=== PATIENT | female | born 1975 | race Two or more races ===

== ENCOUNTER 2022-04-01 16:47 | Inpatient (IN) | payer OTHER ==
[2022-04-01 17:48] VITALS: BMI 21.2
[2022-04-01] MEDS ORDERED: MAGNESIUM HYDROX 2400MG/30ML ORAL SUSPENSION 30 ML CUP PO PRN (18:01)
[2022-04-01] MEDS ORDERED: ONDANSETRON *ODT* 4 MG TABLET SL PRN (18:01)
[2022-04-01] MEDS ORDERED: MAGNESIUM CITRATE 300 ML BOTTLE PO PRN (18:01)
[2022-04-01] MEDS ORDERED: ACETAMINOPHEN 325 MG TABLET (FP) PO PRN ×2 (18:01)
[2022-04-01] MEDS ORDERED: guaiFENesin 200 MG/10 ML 10 ML UNIT-DOSE CUPS PO PRN (18:01)
[2022-04-01] MEDS ORDERED: MELATONIN 5 MG TABLETS PO PRN (18:01)
[2022-04-01] MEDS ORDERED: LOPERAMIDE HCL 2 MG CAPSULE PO PRN (18:01)
[2022-04-01] MEDS ORDERED: P-EPHED 60MG/TRIPROLIDI 2.5MG TABLET PO PRN (18:01)
[2022-04-01] MEDS ORDERED: hydrOXYzine PAMOATE 25 MG CAPSULE (FP) PO PRN (18:01)
[2022-04-01] MEDS ORDERED: DICYCLOMINE HCL 10 MG CAPSULE PO PRN (18:01)
[2022-04-01] MEDS ORDERED: NICOTINE POLACRILEX 2 MG GUM BUC PRN (18:01)
[2022-04-01] MEDS ORDERED: BISMUTH SUBSALICYLATE 524 MG/30 ML PO PRN (18:01)
[2022-04-01] MEDS ORDERED: IBUPROFEN 400 MG TABLET (FP) PO PRN (18:01)
[2022-04-01] MEDS ORDERED: BENZOCAINE/MENTHOL (CHLORASEPTIC ) LOZENGE MM PRN (18:01)
[2022-04-01] MEDS ORDERED: MAG HYDROX/AL HYDROX/SIMETH 30 ML UNIT-DOSE CUP PO PRN (18:01)
[2022-04-01] MEDS: THIAMINE HCL 100 MG TABLET (FP) PO SCH (22:59)
[2022-04-02] MEDS: METHOCARBAMOL 500 MG TABLET PO PRN ×3 (00:47→18:07)
[2022-04-02] MEDS: IBUPROFEN 600 MG TABLET (FP) PO PRN ×2 (00:47→06:56)
[2022-04-02] MEDS ORDERED: METOPROLOL TARTRATE 25 MG TABLET (FP) PO ONE (00:59)
[2022-04-02] MEDS ORDERED: diazePAM 5 MG TABLET PO ONE (01:01)
[2022-04-02] MEDS ORDERED: diazePAM 5 MG TABLET PO PRN (01:01)
[2022-04-02] MEDS: diazePAM 5 MG TABLET PO SCH ×4 (06:26→22:29)
[2022-04-02] MEDS: PRENATAL VITAMINS W/ FOLIC ACID TABLET (FP) PO SCH (10:16)
[2022-04-02] MEDS ORDERED: METHADONE PO ONE (10:45)
[2022-04-02] MEDS ORDERED: methaDONE HCL 10 MG TABLET PO ONE (11:12)
[2022-04-02 12:47] LABS: HEMOGLOBIN 13.6 GM/dL (10.7-15.3); MCH 29.6 pg (25.7-33.7); MCHC 33.1 g/dl (32.0-36.0); MEAN CELL VOLUME 89.2 fl (80-96); MEAN PLT VOLUME 8.3 fl (7.5-11.1); PLATELET COUNT 350 10^3/uL (134-434); RDW 12.8 % (11.6-15.6); WHITE BLOOD COUNT 10.9 K/mm3 (4.0-10.0)
[2022-04-02 12:50] LABS: ALBUMIN 2.7 g/dl (3.4-5.0); BLOOD UREA NITROGEN 11.7 mg/dL (7-18)
[2022-04-02 12:51] LABS: CALCIUM 9.1 mg/dL (8.5-10.1)
[2022-04-02 12:54] LABS: CREATININE 0.7 mg/dL (0.55-1.3)
[2022-04-02 12:55] LABS: BILIRUBIN,TOTAL 0.3 mg/dL (0.2-1); TOT PROT 6.5 g/dl (6.4-8.2)
[2022-04-02] MEDS: lamoTRIgine 25 MG TABLET PO SCH (12:59)
[2022-04-02] MEDS ORDERED: SUVOREXANT 10 MG TABLET PO PRN (22:00)
[2022-04-02] MEDS: THIAMINE HCL 100 MG TABLET (FP) PO SCH (22:29)
[2022-04-03] MEDS: diazePAM 5 MG TABLET PO SCH ×2 (05:26→13:59)
[2022-04-03] MEDS ORDERED: methaDONE 40 MG, methaDONE 30 MG PO ONE (06:00)
[2022-04-03] MEDS ORDERED: methaDONE HCL 10 MG TABLET PO ONE (06:00)
[2022-04-03] MEDS: PRENATAL VITAMINS W/ FOLIC ACID TABLET (FP) PO SCH (10:35)
[2022-04-03] MEDS: lamoTRIgine 25 MG TABLET PO SCH (10:35)
[2022-04-03] MEDS ORDERED: POTASSIUM CHLORIDE ORAL LIQUID 20 MEQ/15 ML PO ONE ×2 (12:00→16:00)
[2022-04-03] MEDS: METOPROLOL TARTRATE 25 MG TABLET (FP) PO SCH (14:52)
[2022-04-03] MEDS ORDERED: diazePAM 5 MG TABLET PO SCH (22:00)
[2022-04-03] MEDS: THIAMINE HCL 100 MG TABLET (FP) PO SCH (22:23)
[2022-04-03] MEDS: IBUPROFEN 600 MG TABLET (FP) PO PRN (22:26)
[2022-04-04] MEDS ORDERED: diazePAM 5 MG TABLET PO SCH (06:00)
[2022-04-04] MEDS ORDERED: methaDONE HCL 10 MG TABLET PO ONE (06:00)
[2022-04-04] MEDS ORDERED: methaDONE 40 MG, methaDONE 20 MG PO ONE (06:00)
[2022-04-04] MEDS: diazePAM 5 MG TABLET PO SCH ×2 (06:05→19:57)
[2022-04-04] MEDS: METOPROLOL TARTRATE 25 MG TABLET (FP) PO SCH (10:44)
[2022-04-04] MEDS: lamoTRIgine 25 MG TABLET PO SCH (10:44)
[2022-04-04] MEDS: PRENATAL VITAMINS W/ FOLIC ACID TABLET (FP) PO SCH (10:44)
[2022-04-04] MEDS ORDERED: methaDONE 40 MG, methaDONE 30 MG PO ONE (11:15)
[2022-04-04] MEDS: LACTULOSE 20 GM/30 ML UDC (FOR ORAL USE ONLY) PO SCH ×2 (15:12→22:18)
[2022-04-04] MEDS: IBUPROFEN 600 MG TABLET (FP) PO PRN (17:53)
[2022-04-04 18:03] VITALS: RESP 16
[2022-04-04] MEDS: SULFAMETHOXAZOLE/TRIMETHOPRIM 800MG/160MG D.S. TABLET PO SCH (22:17)
[2022-04-04] MEDS: THIAMINE HCL 100 MG TABLET (FP) PO SCH (22:17)
[2022-04-05] MEDS ORDERED: methaDONE 40 MG, methaDONE 10 MG PO SCH (06:00)
[2022-04-05] MEDS ORDERED: methaDONE 40 MG, methaDONE 30 MG PO SCH (06:00)
[2022-04-05] MEDS ORDERED: methaDONE HCL 40 MG DISPERSABLE TABLET PO SCH ×2 (06:00)
[2022-04-05] MEDS ORDERED: diazePAM 5 MG TABLET PO ONE ×2 (06:00)
[2022-04-05] MEDS ORDERED: methaDONE HCL 10 MG TABLET PO SCH (06:00)
[2022-04-05] MEDS: LACTULOSE 20 GM/30 ML UDC (FOR ORAL USE ONLY) PO SCH (06:09)
[2022-04-05 10:01] VITALS: BP 135/79; PULSE 80; TEMP 97.8
[2022-04-05] MEDS: PRENATAL VITAMINS W/ FOLIC ACID TABLET (FP) PO SCH (10:17)
[2022-04-05] MEDS: SULFAMETHOXAZOLE/TRIMETHOPRIM 800MG/160MG D.S. TABLET PO SCH (10:17)
[2022-04-05] MEDS: METOPROLOL TARTRATE 25 MG TABLET (FP) PO SCH (10:17)
[2022-04-05] MEDS: lamoTRIgine 25 MG TABLET PO SCH (10:18)
== END 2022-04-05 11:35 | disposition home or self-care (01) | DRG 773 ==
LOC: YASAS 16:47 → Y6N 20:04
PROVIDERS: ADMIT Allergy & Immunology; ATTEND Surgery
PROC: HZ2ZZZZ Detoxification Services for Substance Abuse Treatment (ICD-10-PCS; principal; 2022-04-01)
DX: F10.230 Alcohol dependence with withdrawal, uncomplicated (principal); F11.20 Opioid dependence, uncomplicated; F14.20 Cocaine dependence, uncomplicated; F12.20 Cannabis dependence, uncomplicated; F17.210 Nicotine dependence, cigarettes, uncomplicated; F19.282 Other psychoactive substance dependence with psychoactive substance-induced sleep disorder; F19.280 Other psychoactive substance dependence with psychoactive substance-induced anxiety disorder; F18.24 Inhalant dependence with inhalant-induced mood disorder; F32.A Depression, unspecified; F43.10 Post-traumatic stress disorder, unspecified; F41.9 Anxiety disorder, unspecified; I10 Essential (primary) hypertension; E11.9 Type 2 diabetes mellitus without complications; E87.6 Hypokalemia; R79.89 Other specified abnormal findings of blood chemistry; Z62.810 Personal history of physical and sexual abuse in childhood
CPT/HCPCS: 36415; 80053; 81025; 82140; 82962; 84132; 85027; 86780; 87811; C9803-CS; U0003; U0005

== ENCOUNTER 2024-07-30 13:15 | Inpatient (IN) | payer OTHER ==
[2024-07-30 14:15] VITALS: BMI 23.7
[2024-07-30] MEDS ORDERED: POLYETHYLENE GLYCOL (HEALTHYLAX) 3350 17 GM PACKET PO PRN (14:23)
[2024-07-30] MEDS ORDERED: DICYCLOMINE HCL 10 MG CAPSULE PO PRN (14:23)
[2024-07-30] MEDS ORDERED: LOPERAMIDE HCL 2 MG CAPSULE PO PRN (14:23)
[2024-07-30] MEDS ORDERED: IBUPROFEN 400 MG TABLET (FP) PO PRN (14:23)
[2024-07-30] MEDS ORDERED: MAGNESIUM HYDROX 2400MG/30ML ORAL SUSPENSION 30 ML CUP PO PRN (14:23)
[2024-07-30] MEDS ORDERED: ONDANSETRON *ODT* 4 MG TABLET SL PRN (14:23)
[2024-07-30] MEDS ORDERED: NALOXONE (NARCAN) HCL 4 MG/0.1 ML SPRAY NS PRN (14:23)
[2024-07-30] MEDS ORDERED: methaDONE HCL 10 MG TABLET (FOR DETOX USE ONLY) PO PRN (14:23)
[2024-07-30] MEDS ORDERED: BISMUTH SUBSALICYLATE 524 MG/30 ML PO PRN (14:23)
[2024-07-30] MEDS ORDERED: NICOTINE POLACRILEX 2 MG GUM BUC PRN (14:23)
[2024-07-30] MEDS ORDERED: methaDONE HCL 10 MG TABLET (FOR DETOX USE ONLY) ONE (14:59)
[2024-07-30] MEDS ORDERED: cloNIDine HCL 0.1 MG TABLET ONE (14:59)
[2024-07-30] MEDS: cloNIDine HCL 0.1 MG TABLET PO PRN (15:01)
[2024-07-30] MEDS: methaDONE HCL 10 MG TABLET (FOR DETOX USE ONLY) PO ONE (15:01)
[2024-07-30] MEDS: THIAMINE 100 MG TABLET PO SCH (21:44)
[2024-07-30] MEDS: MELATONIN 5 MG TABLETS PO SCH (21:44)
[2024-07-30] MEDS: METOPROLOL TARTRATE 25 MG TABLET (FP) PO SCH (21:45)
[2024-07-31] MEDS ORDERED: METOPROLOL TARTRATE 25 MG TABLET (FP) PO SCH (10:00)
[2024-07-31] MEDS: NICOTINE 14 MG/24 HOURS TOPICAL PATCH TD SCH (10:07)
[2024-07-31] MEDS: PRENATAL VITAMINS W/ FOLIC ACID TABLET (FP) PO SCH (10:07)
[2024-07-31 11:12] LABS: POTASSIUM 3.8 mmol/L (3.5-5.1)
[2024-07-31 11:13] LABS: HEMATOCRIT 41.5 % (32.4-45.2); HEMOGLOBIN 13.7 GM/dL (10.7-15.3); MCH 29.1 pg (25.7-33.7); MEAN PLT VOLUME 7.7 fl (7.5-11.1); PLATELET COUNT 299 10^3/uL (134-434); RBC 4.72 M/mm3 (3.60-5.2); RDW 13.9 % (11.6-15.6); WHITE BLOOD COUNT 8.6 K/mm3 (4.0-10.0)
[2024-07-31 11:19] LABS: BLOOD UREA NITROGEN 18.7 mg/dL (7-18); CALCIUM 9.1 mg/dL (8.5-10.1)
[2024-07-31 11:22] LABS: CREATININE 0.9 mg/dL (0.55-1.3)
[2024-07-31 11:23] LABS: BILIRUBIN,TOTAL 0.2 mg/dL (0.2-1); TOT PROT 6.7 g/dl (6.4-8.2)
[2024-07-31] MEDS: guaiFENesin 600 MG TABLET.ER (FP) PO PRN (17:59)
[2024-07-31] MEDS: BENZOCAINE/MENTHOL (CHLORASEPTIC ) LOZENGE MM PRN (18:00)
[2024-08-01] MEDS: BENZONATATE 200 MG CAPSULE PO PRN (01:57)
[2024-08-01] MEDS: methaDONE HCL 10 MG TABLET (FOR DETOX USE ONLY) PO ONE (09:33)
[2024-08-01] MEDS: MAG HYDROX/AL HYDROX/SIMETH 30 ML UNIT-DOSE CUP PO PRN (14:41)
[2024-08-01] MEDS: PENICILLIN G BENZATHINE 2,400,000 UNIT/4 ML PFS IM ONE (14:47)
[2024-08-01] MEDS: INSULIN ASPART SLIDING SCALE (NOVOLOG) 1 VIAL SQ SCH (16:51)
[2024-08-01] MEDS: hydrOXYzine PAMOATE 25 MG CAPSULE (FP) PO PRN (21:44)
[2024-08-02] MEDS: IBUPROFEN 600 MG TABLET (FP) PO PRN (17:27)
[2024-08-02] MEDS: METHOCARBAMOL 500 MG TABLET PO PRN (17:28)
[2024-08-02] MEDS: ACETAMINOPHEN 325 MG TABLET (FP) PO PRN (22:19)
[2024-08-02] MEDS: BENZOCAINE 20 % GEL TUBE MM PRN (22:37)
[2024-08-03] MEDS: methaDONE HCL 10 MG TABLET (FOR DETOX USE ONLY) PO ONE (09:33)
[2024-08-03 17:09] VITALS: RESP 18
[2024-08-04] MEDS: NALOXONE (NYS OPIOID OVERDOSE PROGRAM) 4 MG/0.1 ML SPRAY NS SCH (14:06)
[2024-08-04 17:17] VITALS: BP 159/95; PULSE 76; TEMP 97.6
== END 2024-08-04 18:02 | disposition other institution (70) | DRG 773 ==
LOC: YASAS 13:15 → Y3N 15:10
PROVIDERS: ADMIT Psychiatry & Neurology Pain Medicine; ATTEND Psychiatry & Neurology Pain Medicine
PROC: HZ2ZZZZ Detoxification Services for Substance Abuse Treatment (ICD-10-PCS; principal; 2024-07-30)
DX: F11.23 Opioid dependence with withdrawal (principal); F14.20 Cocaine dependence, uncomplicated; F17.210 Nicotine dependence, cigarettes, uncomplicated; F19.24 Other psychoactive substance dependence with psychoactive substance-induced mood disorder; F43.10 Post-traumatic stress disorder, unspecified; F41.9 Anxiety disorder, unspecified; I10 Essential (primary) hypertension; E11.59 Type 2 diabetes mellitus with other circulatory complications; Z62.810 Personal history of physical and sexual abuse in childhood; Z63.8 Other specified problems related to primary support group; Z63.4 Disappearance and death of family member
CPT/HCPCS: 36415; 80053; 80305; 80307; 81025; 82962; 85027; 86593; 86780; 87811; 93005; 93010